=== PATIENT | male | born 1975 | race Two or more races ===

== ENCOUNTER 2024-11-25 21:31 | Emergency (ER) | payer OTHER ==
[~2024-11-25] VITALS: Ht 182.9 cm; Wt 90.7 kg
[2024-11-25] MEDS ORDERED: SYNTHROID125 MCG PO (21:40)
[2024-11-25] MEDS ORDERED: METHYLPREDNISOLONE SOD SUCC 40 MG VIAL IM ONE (22:00)
[2024-11-25] MEDS ORDERED: DIPHENHYDRAMINE HCL 50 MG/ML VIAL 1ML IM ONE (22:00)
[2024-11-25] MEDS ORDERED: IVERMECTIN3 MG PO (22:02)
[2024-11-25] MEDS ORDERED: BENADRYL ALLERG25 MG PO (22:02)
[2024-11-25] MEDS ORDERED: MEDROLPACK PO (22:02)
[2024-11-25] MEDS ORDERED: PEPCID AC20 MG PO (22:02)
[2024-11-25] MEDS ORDERED: DIPHENHYDRAMINE HCL 50 MG/ML VIAL 1ML ONE (22:17)
[2024-11-25] MEDS ORDERED: METHYLPREDNISOLONE SOD SUCC 40 MG VIAL ONE (22:18)
== END 2024-11-25 22:48 | disposition home or self-care (01) ==
LOC: ER 21:34
DX: R21 Rash and other nonspecific skin eruption (principal)